=== PATIENT | male | born 1950 | race African-American/Black ===

== ENCOUNTER 2017-06-19 13:29 | Observation (INO) ==
[2017-06-19] MEDS ORDERED: Ipratropium/Albuterol Neb 3 ML IH ONE (13:33)
--- NOTE | 2017-06-19 13:56 | Emergency Department Note ---
Disposition Clinical Impression: Chest pain, rule out acute myocardial infarction, ACS (acute coronary syndrome) , Acute exacerbation of chronic obstructive airways disease Chest pain Qualifiers: Chest pain type: unspecified Qualified Code(s): R07.9 - Chest pain, unspecified Disposition: Admitted As Inpatient Condition: Fair Referrals: NO,PCP [Primary Care Provider] - Time of Disposition: 15:52 Chest Pain HPI - General Chief Complaint: ED Chest Pain Stated Complaint: Chest Pain Time Seen by Provider: 06/19/17 13:33 Source: patient, EMS Mode of arrival: EMS Limitations: no limitations Vital Signs Reviewed: Yes Nursing Notes Reviewed: Yes - History of Present Illness HPI Narrative: Patient is a 66-year-old male who presents to emergency department via EMS for chest pain. He states that he was sitting on the porch talking to a friend and suddenly started having chest pain located over the center to right side of his chest. He states that there is no radiation of pain. Patient states that the chest pain has progressively gotten worse and rates pain as a 10 out of 10. Patient states that the character the pain is sharp and constant. Nothing seems to make this pain any better or worse. He states that he has not tried taking anything for this chest pain. Severity scale (1-10): 10 - Related Data Home Medications Medication Instructions Recorded Confirmed Albuterol Sulfate [Ventolin Hfa] 2 puff IH Q4H PRN 02/06/17 06/19/17 Allergies Allergy/AdvReac Type Severity Reaction Status Date / Time aspirin Allergy Anaphylaxis Verified 09/03/16 23:34 Penicillins Allergy Anaphylaxis Verified 09/03/16 23:34 All systems ED: reviewed and negative except as stated. Constitutional: Denies: fever, chills Cardiovascular: Reports: chest pain Respiratory: Reports: dyspnea (Mild) Gastrointestinal: Reports: nausea, vomiting Chest Pain PMH - Past Medical History Medical history: Reports: COPD, other Psychiatric history: Reports: no psych history - Social History Smoking Status: Current every day smoker Alcohol use: Reports: none Drug use: Reports: none Physical Exam - General Limitations: no limitations General appearance: alert, in distress (Moderate distress) - Head Head exam: atraumatic, normocephalic - Neck Neck exam: Present: normal inspection, full ROM, trachea midline - Respiratory Respiratory exam: Present: wheezes, other (Decreased air movement) - Cardiovascular Cardiovascular exam: Present: regular rate, normal rhythm, normal heart sounds, +S1, +S2 - Abdominal Exam Abdominal exam: Present: soft, tenderness, normal bowel sounds, other (Actively vomiting) Abdominal tenderness: Present: epigastrium, mild - Neurological Exam Neurological exam: Present: alert, oriented X3, CN II-XII intact - Psychiatric Psychiatric exam: Present: normal affect, normal mood - Skin Skin exam: Present: warm, dry, intact Course - Reevaluation(s) Reevaluation #1: Patient states that he still having chest pain and rating it as a 10 out of 10. States that it still hurts when he breathes and coughs. Time: 14:18 Reevaluation #2: I spoke the patient and the family and explained the laboratory tests and imaging. I have also explained to them that the patient's symptoms are very concerning in that he is at increased risk for potential cardiac event so we would like to admit him to the hospital for observation and rule out of ACS. The patient and family are in agreement with this. Time: 15:44 Reevaluation #3: I spoke with I spoke with the nurse practitioner Cordelia Torres and she has accepted the patient to their service. Time: 17:27 Vital Signs Temperature 98.7 F 06/19/17 13:32 Pulse Rate 73 06/19/17 13:32 Respiratory Rate 18 06/19/17 13:32 Blood Pressure 197/102 06/19/17 13:32 O2 Sat by Pulse Oximetry 98 06/19/17 13:32 Temperature 98.7 F 06/19/17 13:32 Pulse Rate 76 06/19/17 16:40 Respiratory Rate 16 06/19/17 16:40 Blood Pressure 163/62 06/19/17 16:40 O2 Sat by Pulse Oximetry 95 06/19/17 16:40 Oxygen Delivery Oxygen Delivery Nasal Cannula Chest Pain - MDM Narrative Medical decision making narrative: The patient is having chest pain we have ordered laboratory testing and chest x- ray. The labs came back within normal limits other than the potassium which was slightly elevated likely due to the blood being hemolyzed and the chest x- ray showed no acute process. Due to the patient's symptoms and that they have persisted as well as the patient's heart for 5 we will admit the patient in the hospital. I spoke with the patient and the family about the laboratory results and imaging results and that we will admit him to the hospital. The patient and family were in agreement with this and I will contact the hospitalist and admit the :patient to the hospital. I spoke with the hospitalist nurse practitioner Cordelia Torres and she has accepted the patient to their service. - Lab Data Lab results reviewed: Yes I reviewed the patient's lab results. Result diagrams: 06/19/17 13:48 06/19/17 14:55 Lab Results 06/19/17 06/19/17 06/19/17 Range/Units 13:48 13:50 14:55 WBC 8.6 (4.3-11.1) K/mcL RBC 5.31 (4.19-5.50) M/mcL Hgb 16.2 (12.9-16.9) g/dL Hct 47.2 (37.5-50.1) % MCV 88.9 (83.0-100.0) fL MCH 30.5 (28.0-33.3) pg MCHC 34.3 (31.6-35.5) g/dL RDW 13.9 (11.5-14.5) % Plt Count 245 (140-400) K/mcL MPV 10.6 (9.4-12.4) fL Immature Gran % 0.2 (0-4) % Seg Neutrophils % 71.8 % Lymphocytes % 21.8 % Monocytes % 5.8 % Eosinophils % 0.3 % Basophils % 0.1 % Neutrophils # 6.2 (1.6-8.9) K/mcL Lymphocytes # 1.9 (0.6-4.6) K/mcL Monocytes # 0.5 (0.0-1.3) K/mcL Eosinophils # 0.0 (0.0-0.6) K/mcL Basophils # 0.0 (0.0-0.2) K/mcL Sodium 137 (136-145) mEq/L Potassium 4.7 H (3.5-4.5) mEq/L Chloride 103 (98-109) mEq/L Carbon Dioxide 22 (19-29) mEq/L BUN 9 (8-26) mg/dL Creatinine 0.92 (0.72-1.25) mg/dL Est GFR ( Amer) > 60 (> 60) Est GFR (Non-Af Amer) > 60 (> 60) BUN/Creatinine Ratio 10 (6-26) Glucose 85 (70-99) mg/dL Calculated Osmolality 282 (280-300) Calcium 9.4 (8.6-10.8) mg/dL Troponin I (0-0.03) ng/mL Lipase 10 (8-78) Units/L Specimen Rejected Hemolyzed 06/19/17 Range/Units 14:55 WBC (4.3-11.1) K/mcL RBC (4.19-5.50) M/mcL Hgb (12.9-16.9) g/dL Hct (37.5-50.1) % MCV (83.0-100.0) fL MCH (28.0-33.3) pg MCHC (31.6-35.5) g/dL RDW (11.5-14.5) % Plt Count (140-400) K/mcL MPV (9.4-12.4) fL Immature Gran % (0-4) % Seg Neutrophils % % Lymphocytes % % Monocytes % % Eosinophils % % Basophils % % Neutrophils # (1.6-8.9) K/mcL Lymphocytes # (0.6-4.6) K/mcL Monocytes # (0.0-1.3) K/mcL Eosinophils # (0.0-0.6) K/mcL Basophils # (0.0-0.2) K/mcL Sodium (136-145) mEq/L Potassium (3.5-4.5) mEq/L Chloride (98-109) mEq/L Carbon Dioxide (19-29) mEq/L BUN (8-26) mg/dL Creatinine (0.72-1.25) mg/dL Est GFR ( Amer) (> 60) Est GFR (Non-Af Amer) (> 60) BUN/Creatinine Ratio (6-26) Glucose (70-99) mg/dL Calculated Osmolality (280-300) Calcium (8.6-10.8) mg/dL Troponin I 0.00 (0-0.03) ng/mL Lipase (8-78) Units/L Specimen Rejected - Radiology Data Radiology results reviewed: Yes I reviewed the patient's radiology results. Chest X-Ray 06/19/17 13:35 IMPRESSION: No acute process. D/ / Chauncey Mendoza MD / Chauncey Mendoza MD Interpreting Provider: Chauncey Mendoza MD - EKG Data EKG attestation: Yes I reviewed and interpreted this EKG. EKG results narrative: EKG shows sinus rhythm at a rate of 78, MD interval. 201, QRS duration 85 and QTC 417, no ischemic changes noted on this ECG. EKG was compared to previous on 09/19/16 no acute changes noted between the 2 EKGs
[2017-06-19 13:57] LABS: Basophils % 0.1 %; Eosinophils % 0.3 %; Hematocrit 47.2 % (37.5-50.1); Hemoglobin 16.2 g/dL (12.9-16.9); Immature Granulocytes % 0.2 % (0-4); Lymphocytes # 1.9 K/mcL (0.6-4.6); Lymphocytes % 21.8 %; Mean Corpuscular HGB Conc 34.3 g/dL (31.6-35.5); Mean Corpuscular Hemoglobin 30.5 pg (28.0-33.3); Mean Corpuscular Volume 88.9 fL (83.0-100.0); Mean Platelet Volume 10.6 fL (9.4-12.4); Monocytes # 0.5 K/mcL (0.0-1.3); Monocytes % 5.8 %; Neutrophils # 6.2 K/mcL (1.6-8.9); Platelet Count 245 K/mcL (140-400); Red Blood Count 5.31 M/mcL (4.19-5.50); Red Cell Distribution Width 13.9 % (11.5-14.5); Segmented Neutrophils % 71.8 %
--- NOTE | 2017-06-19 14:06 | Emergency Department Note ---
START Narrative - START START: I examined this patient and my medical decision-making was reviewed with the ETHY[employer]EN[employer] CRACKING SUPERVISOR/PA/Advanced Practice Nurse/Resident Physician. I agree with the documented findings, disposition and treatment plan as described except to the extent set forth below. ED attending note: Patient seen with emergency medicine resident Dr Reina. We independently evaluated the patient. We independently had [id number] contact with the patient. Please see a copy of his note for details of the history and physical, evaluation, management and disposition of this emergency Department patient. Briefly 66-year-old -[place] male by EMS presents with shortness of breath wheezing and chest pain. Patient has a history of diabetes smoking hypertension elevated cholesterol and COPD. Bilateral expiratory wheezing Accessory muscle use he had about 1 sentence dyspnea. With poor airway movement. Said he was sitting on his porch and was sitting at rest no chest pain his left side normal aside of his chest but no radiation to the arm or chest. No recent stress test does not recall if he had a cardiac catheterization. EKG interpreted without cardiology showing sinus rhythm with no acute ischemic changes. Using the HEART score, patient scored 5 which is moderate risk admission is anticipated. Patient got triple DuoNeb treatment will be getting a chest x-ray and screening labs. Admission anticipated disposition pending labs pending
[2017-06-19] MEDS ORDERED: *HR* FentaNYL (PF) 100 MCG/2 ML VIAL IVP ONE (14:25)
[2017-06-19 15:18] LABS: BUN/Creatinine Ratio 10 (6-26); Blood Urea Nitrogen 9 mg/dL (8-26); Calcium 9.4 mg/dL (8.6-10.8); Carbon Dioxide 22 mEq/L (19-29); Chloride 103 mEq/L (98-109); Glucose 85 mg/dL (70-99); Lipase 10 Units/L (8-78); Osmolality,Calculated 282 (280-300); Sodium 137 mEq/L (136-145); eGFR For African Americans > 60 (> 60); eGFR For Non-African Americans > 60 (> 60)
[2017-06-19 15:21] LABS: Potassium 4.7 mEq/L (3.5-4.5)
[2017-06-19] MEDS ORDERED: Nitroglycerin 0.4 MG TAB.SUBL SL PRN (15:53)
[2017-06-19] MEDS ORDERED: *HR* Morphine 2 MG/ML SYRINGE IVP PRN (19:45)
[2017-06-19] MEDS ORDERED: Acetaminophen 325 MG TABLET PO PRN (19:45)
[2017-06-19] MEDS ORDERED: Ondansetron 4 MG/2 ML VIAL IVP PRN (19:45)
[2017-06-19] MEDS ORDERED: Naloxone 0.4 MG/ML INJ IVP PRN (19:45)
[2017-06-19] MEDS: Ipratropium/Albuterol Neb 3 ML IH SCH ×2 (20:10→23:05)
--- NOTE | 2017-06-19 20:11 | Internal Med History&Physical ---
Date of Encounter: 06/19/17 Time of Encounter: 20:00 Assessment and Plan (1) Chest pain, rule out acute myocardial infarction Current visit: Yes Status: Acute Atypical chest pain - rule out ACS, risk factors include smoking and strong family history of coronary artery disease Continue Aspirin, Statin and metoprolol IV Morphine when necessary and Nitroglycerin sublingual when necessary EKG - normal sinus rhythm with no acute ST-T changes Chest x-ray - no acute process Troponin - normal, cyclical component BN peptide - 42 Echocardiogram and stress test pending Cardiac telemetry, labs in a.m. (2) COPD (chronic obstructive pulmonary disease) Current visit: Yes Status: Chronic COPD with mild exacerbation - continue DuoNeb breathing treatment Qualifiers: COPD type: unspecified COPD Qualified Code(s): J44.9 - Chronic obstructive pulmonary disease, unspecified (3) Acute bronchitis Current visit: Yes Status: Acute Acute on chronic bronchitis - causing cough and productive sputum Continue DuoNeb breathing treatment, Mucinex, no need for antibiotics at this time Qualifiers: Bronchitis organism: unspecified organism Qualified Code(s): J20.9 - Acute bronchitis, unspecified (4) Essential hypertension Current visit: Yes Status: Chronic Essential hypertension, uncontrolled - patient has not been on meds for some time Started on metoprolol, monitor (5) Chronic back pain Current visit: Yes Status: Chronic Chronic back pain - status post pain pump placement Qualifiers: Back pain location: low back pain Back pain laterality: bilateral Sciatica presence: without sciatica Qualified Code(s): M54.5 - Low back pain; G89.29 - Other chronic pain (6) Tobacco abuse Current visit: Yes Status: Chronic Smokes about a pack and a half of cigarettes daily - has smoked for almost 40 years Counseled about cessation, nicotine patch (7) DVT prophylaxis Current visit: Yes Status: Acute Continue heparin subcutaneous Internal Medicine - H&P: HPI Chief complaint: Chest pain Admitted From: Emergency Dept Plans for Post Hospital Care: Home History of present illness: Mr. Douglas is a 66 year old male with past medical history of COPD, hypertension and chronic back pain. He presents to ED with complaints of chest pain. On examination patient is awake and alert. Not in any distress. Able to provide history. No family members at bedside. Patient states he developed chest pain at around 11:30 AM this morning while he was at his friend's house. Patient states he developed right-sided chest pain which was sharp and almost constant. Pain did not radiate. Initial pain was almost 10 out of 10. He states pain is now better after being given medication in the ED. He also complained of nausea and 1 episode of vomiting. Also had associated shortness of breath which is now improved. No aggravating factors. Patient states he has had some chronic cough for the past few days with some productive sputum. He does have a history of COPD and continues to smoke about a pack and a half of cigarettes a day. Patient denies headache or dizziness or fever or abdominal pain or diarrhea. No other associated symptoms. Initial evaluation in the ED is negative. Troponin is normal and EKG shows normal sinus rhythm. Patient will be on aspirin and statin. Patient will also be on DuoNeb breathing treatment and empiric antibiotics for probable acute bronchitis. He is being admitted for chest pain to rule out ACS. He does have a strong family history of coronary artery disease. Echocardiogram and stress test are pending. Patient has been explained about his condition and plan of care. Understood and agreed. No unanswered questions. CODE STATUS full code. Past Med Surg Social Fam HX - Past Medical History Medical history: COPD, hypertension, other (Chronic back pain) Psychiatric history: no psych history - Past Surgical History Surgical History: prostatectomy, other (Pain pump placement for chronic back pain) - Social History Smoking Status: Current every day smoker Smokeless Tobacco Status: No Alcohol use: none Drug use: none - Family History Mother Living Status: Age at : 84 Cause of : old age Hx Family Cardiac Disorders: Yes Father Living Status: Age at : 84 Cause of : heart disease Hx Family Cardiac Disorders: Yes Internal Medicine - H&P: Meds Albuterol Sulfate [Ventolin Hfa] 2 puff IH Q4H PRN 02/06/17 [History] Allergies Penicillins Allergy (Verified 09/03/16 23:34) Anaphylaxis aspirin Adverse Reaction (Verified 06/19/17 21:25) Nausea All Systems PM: A 10-system review of systems was performed and is negative for pertinent findings except as documented above in the HPI. - Constitutional Constitutional: no fatigue, no fever(s), no weakness - EENT Eyes: no blurry vision - Cardiovascular Cardiovascular ROS IM: chest pain, dyspnea, no dyspnea on exertion, no edema, no lightheadedness, no orthopnea, no syncope - Respiratory Respiratory: cough, dyspnea, chest congestion, no dyspnea on exertion, no wheezing - Gastrointestinal Gastrointestinal: no abdominal pain, no belching, no bloating, no constipation, no cramping, no diarrhea, no melena, no nausea, no vomiting - Genitourinary Genitourinary ROS male: no dysuria - Musculoskeletal Musculoskeletal ROS IM: back pain, no arthralgias - Neurological Neurological ROS: no abnormal gait, no abnormal speech, no dizziness, no focal weakness, no numbness, no tingling, no weakness - Constitutional Vitals: Temp Pulse Resp BP Pulse Ox 99.4 F 92 15 164/94 97 06/19/17 20:01 06/19/17 20:01 06/19/17 20:01 06/19/17 20:01 06/19/17 20:01 General appearance: Present: A&O X 3, pleasant, no acute distress, answers questions appropriately - Head Head exam: Present: atraumatic - Eye Eye exam: Present: EOMI - ENT ENT exam: Present: mucous membranes moist - Neck Neck exam general surgery: Present: supple - Respiratory Respiratory exam: Present: rhonchi (Mild bilateral). Absent: accessory muscle use, chest wall tenderness, rales, wheezes, tachypnea - Cardiovascular Cardiovascular exam: Present: RRR, +S1, +S2 - GI/Abdominal GI/Abdominal exam: Present: soft, no peritoneal signs. Absent: distended, firm , guarding, rigid, tenderness - Extremities Exam Extremities exam: Present: radial pulses palpable and symetrical. Absent: cyanotic, pedal edema, tenderness - Neurological Exam Neurological exam: Present: alert, oriented X3, no focal deficits. Absent: facial droop, speech deficit Internal Med - H&P Results - Labs CBC & Chem 7: 06/19/17 13:48 06/19/17 14:55
[2017-06-19 20:44] LABS: INR 1.1; Prothrombin Time 11.4 Seconds (9.4-12.1)
[2017-06-19] MEDS: *HR* Heparin 5,000 UNIT/ML VIAL SQ SCH (22:15)
[2017-06-19] MEDS: Aspirin Enteric Coated 81 MG Tablet PO SCH (22:16)
[2017-06-19] MEDS: Nicotine 21 MG PATCH.TD24 TD SCH (23:26)
[2017-06-20] MEDS: Ipratropium/Albuterol Neb 3 ML IH SCH ×6 (03:52→23:38)
[2017-06-20 03:56] LABS: Basophils % 0.1 %; Hematocrit 39.4 % (37.5-50.1); Hemoglobin 13.1 g/dL (12.9-16.9); Immature Granulocytes % 0.1 % (0-4); Lymphocytes # 1.7 K/mcL (0.6-4.6); Lymphocytes % 17.5 %; Mean Corpuscular HGB Conc 33.2 g/dL (31.6-35.5); Mean Corpuscular Hemoglobin 29.3 pg (28.0-33.3); Mean Corpuscular Volume 88.1 fL (83.0-100.0); Mean Platelet Volume 10.8 fL (9.4-12.4); Monocytes # 1.4 K/mcL (0.0-1.3); Monocytes % 14.2 %; Neutrophils # 6.5 K/mcL (1.6-8.9); Platelet Count 218 K/mcL (140-400); Red Blood Count 4.47 M/mcL (4.19-5.50); Red Cell Distribution Width 13.6 % (11.5-14.5); Segmented Neutrophils % 68.1 %
[2017-06-20 04:10] LABS: BUN/Creatinine Ratio 14 (6-26); Blood Urea Nitrogen 15 mg/dL (8-26); Carbon Dioxide 28 mEq/L (19-29); Chloride 100 mEq/L (98-109); Chol/HDL Ratio 2.1 (0-4.9); Glucose 116 mg/dL (70-99); Osmolality,Calculated 284 (280-300); Sodium 136 mEq/L (136-145); eGFR For African Americans > 60 (> 60); eGFR For Non-African Americans > 60 (> 60)
[2017-06-20 05:11] LABS: Thyroid Stimulating Hormone 0.418 mcIU/mL (0.350-4.840)
[2017-06-20] MEDS ORDERED: Regadenoson 0.4 MG/5 ML SYRINGE IVP ONE (05:57)
[2017-06-20] MEDS: *HR* Heparin 5,000 UNIT/ML VIAL SQ SCH ×3 (05:59→21:51)
[2017-06-20] MEDS: Famotidine 20 MG/2 ML VIAL IVP SCH ×2 (06:27→16:05)
--- NOTE | 2017-06-20 09:50 | Nuclear Medicine Stress Report ---
Regadenoson Nuclear Stress Name: Jordon Douglas Date of Study: 06/20/2017 Date: 1950 Ht: 69.0 in Medical Record#: [id number] Age: 66 Wt: 150.0 lb Gender: Male Order #: [id number] Location: [facility] Room: [facility] Supervising Provider: Nikko Matos CNP Reading Physician: Haja Rowe DO, FAC, [facility] Ordering Physician: Ellen Mehta CNP Primary Care Physician: None Stress Technologist: Rabia Israel LOAD TEST MECHANIC, CCT Stone Rougher: Corine Mclean Indications: Chest Pain Impression: Pharmacologic stress ECG is negative for ischemia at level of heart rate achieved. Gated EF = 64%. Small sized, mild intensity, fixed apex and apical inferior defect. Wall motion is normal. Findings are c/w artifact. Perfusion imaging was negative for ischemia or infarct. History: Hypertension Hypercholesteremia History of Smoking Stress Test Summary: Stress Test Type: Pharmacologic Regadenoson 0.4mg/5ml given IV Baseline Information: Initial Heart Rate: 80 Blood Pressure: 144/82 Stress Information: Test Terminated Due to (primary): As per protocol Maximum Blood Pressure: 148/84 Maximum Heart Rate: 110 Percent Maximum Heart Rate Achieved: 72 Double Product: 70312 METS Reached: 1 Symptoms: Shortness of breath, No chest symptoms Nuclear Summary: SPECT myocardial perfusion imaging using Tc99m Sestamibi given intravenously was performed at rest and following cardiac stress testing. The resting images were obtained following initial dose of 11.2 mCi. Following stress an additional dose of 34.6 mCi was given at peak exercise or 30 seconds post regadenoson infusion. Medication Given: Time Medication Dose Units Route Findings: Stress Note * Resting ECG demonstrated normal sinus rhythm. * No baseline arrhythmias were noted. * Pharmacologic stress ECG is negative for ischemia at level of heart rate achieved. * No arrhythmias were noted during stress. * Patient had no chest pain during stress. Hemodynamic responses * Normal hemodynamic responses to pharmacologic stress. Study Quality * Study quality is average. Gated EF % * Gated EF = 64%. Left Ventricle * The left ventricle is not dilated. LVEDV = 108 mL. * Normal wall motion. Apical Perfusion Rest * The apex and apical inferior segments show a mild reduction in perfusion. Apical Perfusion Stress * The apex and apical inferior segments show a mild reduction in perfusion. TID * No evidence of transient ischemic dilatation. TID ratio = 1.16. Lung Uptake * There is no evidence of increase lung uptake. Updated by Haja Rowe DO, DIVINE, CLOVER, DIANA on 06/20/2017 9:43:10 AM
[2017-06-20] MEDS: Nicotine 21 MG PATCH.TD24 TD SCH (10:40)
[2017-06-20] MEDS: Aspirin Enteric Coated 81 MG Tablet PO SCH (10:40)
--- NOTE | 2017-06-20 14:59 | Internal Med Progress Note ---
Date of Encounter: 06/20/17 Time of Encounter: 14:45 - Assessment and plan (1) Chest pain Current Visit: Yes Status: Acute Assessment and plan: Patient reports presenting to the emergency department for right-sided chest pain which is sharp and constant without radiation. He said it was 10/10. He is pain-free at this time. He also had associated shortness of breath that was worse than his normal baseline shortness of breath. He has had a cough and shortness of breath for about a month. The pain is not reproducible. He is pain-free at this time. Troponins were negative 3. Chest x-ray was negative for any acute process. Echocardiogram showed LVEF 55% with mild concentric LV hypertrophy and atypical septal motion of unclear etiology and mild diastolic dysfunction. Stress test showed gated EF of 64%. There is a small sized, mild intensity, fixed apex and apical anterior defect wall motion was normal. The findings were consistent with artifact. Perfusion imaging was negative for ischemia or infarct. Continue telemetry 2 new treatment for bronchitis and COPD Monitor labs Treat chest pain with nitroglycerin as needed if it returns. Chest X-Ray 06/19/17 13:35 IMPRESSION: No acute process. D/ / Chauncey Mendoza MD / Chauncey Mendoza MD Interpreting Provider: Chauncey Mendoza MD Qualifiers: Chest pain type: unspecified Qualified Code(s): R07.9 - Chest pain, unspecified (2) Acute bronchitis Current Visit: Yes Status: Acute Assessment and plan: Patient with history of COPD. Patient reports productive cough with thin yellow purulent sputum for several weeks. Patient is a smoker. Wheezing and rhonchi are heard in all posterior gerardo. Patient coughs with any deep inspiration. Continue duo nebs scheduled Albuterol breathing treatments when necessary Solu-Medrol 40 mg IV bid Levaquin 500mg IV daily Oxygen titrate to maintain sats >92%. Qualifiers: Bronchitis organism: unspecified organism Qualified Code(s): J20.9 - Acute bronchitis, unspecified (3) Tobacco abuse Current Visit: Yes Status: Chronic Assessment and plan: Chronic. Nicotine patch. (4) Essential hypertension Current Visit: Yes Status: Chronic Assessment and plan: Chronic. Continue home medications. Monitor vital signs. (5) DVT prophylaxis Current Visit: Yes Status: Acute Assessment and plan: Heparin subcutaneous. (6) Respiratory failure with hypoxia Current Visit: Yes Status: Acute Assessment and plan: Patient is requiring supplemental oxygen to maintain sats greater than 92%. He is currently using 3 L of oxygen. He states that he does not have home oxygen. We can reevaluate prior to discharge for need for home oxygen. Qualifiers: Chronicity: acute Qualified Code(s): J96.01 - Acute respiratory failure with hypoxia - Time Spent With Patient less than 15 minutes - Subjective Interval history: Patient was seen and assessed at 2:45 PM. Is speaking with the elementary school social worker regarding resources. He reports a two-month history of productive cough, shortness of breath, wheezing. Is currently living at home with no water and electricity. He reports that he is having increasing difficulty with ADLs. He does smoke. - Constitutional Vitals: Temp Pulse Resp BP Pulse Ox 98.0 F 79 16 162/100 100 06/20/17 11:28 06/20/17 11:28 06/20/17 11:28 06/20/17 11:44 06/20/17 11:28 General appearance: Present: A&O X 3, pleasant, no acute distress, answers questions appropriately - Head Head exam: Present: normal inspection - Eye Eye exam: Present: normal appearance, conjuntiva pink - ENT ENT exam: Present: mucous membranes moist, normal exam, normal external ear exam - Neck Neck exam general surgery: Present: normal inspection. Absent: lymphadenopathy , tenderness - Respiratory Respiratory exam: Present: rhonchi, wheezes. Absent: chest wall tenderness, decreased breath sounds, prolonged expiratory phase, rales, respiratory distress - Cardiovascular Cardiovascular exam: Present: RRR, +S1, +S2. Absent: diastolic murmur, systolic murmur - GI/Abdominal GI/Abdominal exam: Present: normal bowel sounds, soft. Absent: distended, hernia, hepatomegaly, tenderness - Extremities Exam Extremities exam: Present: normal capillary refill, warm, radial pulses palpable and symetrical. Absent: mottling, pedal edema, tenderness - Neurological Exam Neurological exam: Present: alert, oriented X3, no focal deficits. Absent: facial droop, speech deficit Internal Medicine: Result - Labs CBC & Chem 7: 06/20/17 03:08 06/20/17 03:08 Labs: Short CBC 06/20/17 Range/Units 03:08 WBC 9.5 (4.3-11.1) K/mcL Hgb 13.1 D (12.9-16.9) g/dL Hct 39.4 (37.5-50.1) % Plt Count 218 (140-400) K/mcL Neutrophils # 6.5 (1.6-8.9) K/mcL BMP 06/20/17 03:08 Sodium 136 Potassium 4.0 Chloride 100 Carbon Dioxide 28 BUN 15 Creatinine 1.05 Glucose 116 H Calcium 9.0 Cardiac Enzymes 06/19/17 06/20/17 Range/Units 20:23 03:08 Troponin I 0.00 0.00 (0-0.03) ng/mL - ABG Interpretation ABG results: PT/INR, D-dimer PT 11.4 Seconds (9.4-12.1) 06/19/17 20:23 Consult Discharge Plan - Plan
[2017-06-20 15:30] LABS: Bilirubin,Urine Negative (Negative); Blood,Urine Small (Negative); Clarity,Urine Clear (Clear); Color,Urine Dark Yellow (Yellow); Glucose,Urine (UA) Normal (Normal); Ketones,Urine Negative (Negative); Leukocyte Esterase,Urine Negative (Negative); Nitrite,Urine Negative (Negative); Protein,Urine Negative (Neg-Trace); Urobilinogen,Urine Normal (Normal)
[2017-06-20 15:33] LABS: Bacteria,Urine None Seen per hpf (None-Few); Hyaline Casts,Urine None Seen per lpf (None-Few); RBC,Urine 0-3 per hpf (0-3); Squamous Epithelial Cell,Urine Few per lpf (None-Few); WBC,Urine 0-3 per hpf (0-3)
[2017-06-20] MEDS ORDERED: Albuterol 2.5 MG/3 ML NEBULIZER IH PRN (15:35)
--- NOTE | 2017-06-20 15:52 | Electrocardiograph Report ---
[address] [address] Test Date: 2017-06-19 Pat Name: Jordon Douglas Department: 105 Room: 3B54 Gender: M Property Maintenance Supervisor: TANISHA : 1950 Requested By: Roel Plaza Order Number: [id number] Reading MD: Jony Oliva MD Measurements Intervals [place] Rate: 78 P: 64 IN: 201 QRS: -14 QRSD: 85 T: 48 QT: 384 QTc: 417 Interpretive Statements SINUS RHYTHM Electronically Signed On 06-20-2017 15:50:27 EDT by Jony Oliva MD
[2017-06-20] MEDS ORDERED: Levofloxacin 500 MG/100 ML 500 MG/100 ML BAG IVPB SCH (16:00)
[2017-06-20] MEDS: MethylPREDNISolone 40 MG/ML VIAL IVP SCH (16:05)
[2017-06-21] MEDS: Ipratropium/Albuterol Neb 3 ML IH SCH ×2 (04:19→07:52)
[2017-06-21] MEDS: *HR* Heparin 5,000 UNIT/ML VIAL SQ SCH (05:34)
[2017-06-21] MEDS: MethylPREDNISolone 40 MG/ML VIAL IVP SCH (05:34)
[2017-06-21] MEDS: Famotidine 20 MG/2 ML VIAL IVP SCH (05:34)
[2017-06-21 07:13] VITALS: BP 148/87
[2017-06-21 07:35] LABS: Basophils % 0.1 %; Hematocrit 41.3 % (37.5-50.1); Hemoglobin 13.8 g/dL (12.9-16.9); Immature Granulocytes % 0.7 % (0-4); Lymphocytes # 1.1 K/mcL (0.6-4.6); Lymphocytes % 6.6 %; Mean Corpuscular HGB Conc 33.4 g/dL (31.6-35.5); Mean Corpuscular Hemoglobin 29.4 pg (28.0-33.3); Mean Corpuscular Volume 87.9 fL (83.0-100.0); Mean Platelet Volume 12.3 fL (9.4-12.4); Monocytes # 1.1 K/mcL (0.0-1.3); Monocytes % 7.2 %; Neutrophils # 13.6 K/mcL (1.6-8.9); Platelet Count 201 K/mcL (140-400); Red Cell Distribution Width 13.2 % (11.5-14.5); Segmented Neutrophils % 85.4 %
[2017-06-21 07:44] LABS: BUN/Creatinine Ratio 13 (6-26); Blood Urea Nitrogen 12 mg/dL (8-26); Calcium 9.4 mg/dL (8.6-10.8); Carbon Dioxide 19 mEq/L (19-29); Chloride 102 mEq/L (98-109); Glucose 150 mg/dL (70-99); Osmolality,Calculated 277 (280-300); Sodium 132 mEq/L (136-145); eGFR For African Americans > 60 (> 60); eGFR For Non-African Americans > 60 (> 60)
[2017-06-21 07:52] LABS: Potassium 4.8 mEq/L (3.5-4.5)
--- NOTE | 2017-06-21 08:15 | Discharge Summary ---
Date of Encounter: 06/21/17 Time of Encounter: 07:45 - Discharge Diagnosis (1) Chest pain Priority: Primary Status: Resolved Comments: Patient denied chest pain on day of discharge. Stress test negative. Echocardiogram unremarkable with ejection fraction of 55%. Acute coronary syndrome ruled out. Follow up outpatient Qualifiers: Chest pain type: unspecified Qualified Code(s): R07.9 - Chest pain, unspecified (2) Unsatisfactory living conditions Priority: Primary Status: Chronic Comments: Patient does not have electricity or running water. He told me that his ex- . His electric bill last week and states that his electricity has been turned on. This was not corroborated with his ex- or his sons. Patient also stating he has the money to pay his water pill and is going to do that today. Again, low suspicion as to the veracity of this statement. hvac services professional on board. Patient is alert and oriented 3, will get social work involved for additional resources possible APS referral at social work discretion. (3) Alcohol abuse Priority: Secondary Status: Chronic Comments: Family reporting patient is a heavy, daily drinker. Patient requesting a "pint and a pack" at time of discharge. No signs of withdrawal on day of discharge. (4) Acute exacerbation of chronic obstructive airways disease Priority: Primary Status: Resolved Comments: Patient denied shortness of breath above his normal daily discharge. On albuterol only home, will initiate controller medications (5) COPD (chronic obstructive pulmonary disease) Priority: Secondary Status: Chronic (6) Acute bronchitis Priority: Primary Status: Acute Qualifiers: Bronchitis organism: unspecified organism Qualified Code(s): J20.9 - Acute bronchitis, unspecified (7) DVT prophylaxis Priority: Primary Status: Acute Comments: Subcutaneous heparin while admitted (8) Chronic back pain Priority: Secondary Status: Chronic Comments: Reportedly has a pain pump, patient denied pain above his usual time of discharge Qualifiers: Back pain location: low back pain Back pain laterality: bilateral Sciatica presence: without sciatica Qualified Code(s): M54.5 - Low back pain; G89.29 - Other chronic pain (9) Tobacco abuse Priority: Secondary Status: Chronic Comments: Patient stating he has smoked 1.5 packs per day since he was 10 years old. He is not interested in stopping smoking. (10) Essential hypertension Priority: Secondary Status: Chronic Comments: Borderline hypertensive/hypertensive during this visit. He is not on antihypertensives at home, will initiate metoprolol and will instruct him to check his blood pressure daily at home and follow up with his primary care provider (11) Respiratory failure with hypoxia Priority: Primary Status: Resolved Comments: Tolerating room air on day of discharge Qualifiers: Chronicity: acute Qualified Code(s): J96.01 - Acute respiratory failure with hypoxia - Discharge Medications Prescriptions: Albuterol Sulfate [Ventolin Hfa] 2 puff IH Q4H PRN #1 PRN Reason: Shortness Of Breath Aspirin Enteric Coated [Aspirin EC] 81 mg PO DAILY #30 Budesonide/Formoterol 160/4.5 [Symbicort 160/4.5] 1 puff IH BIDR #1 hfa.aer.ad GuaiFENesin ER [Mucinex] 600 mg PO BID #14 levoFLOXacin [Levofloxacin] 750 mg PO DAILY #5 tablet Metoprolol [Lopressor] 25 mg PO BID #60 tab predniSONE [PredniSONE] 10 mg PO DAILY #80 tablet Home Medications: Albuterol Sulfate [Ventolin Hfa] 2 puff IH Q4H PRN #1 06/21/17 [Rx] Aspirin Enteric Coated [Aspirin EC] 81 mg PO DAILY #30 06/21/17 [Rx] Budesonide/Formoterol 160/4.5 [Symbicort 160/4.5] 1 puff IH BIDR #1 hfa.aer.ad 06/21/17 [Rx] GuaiFENesin ER [Mucinex] 600 mg PO BID #14 06/21/17 [Rx] Metoprolol [Lopressor] 25 mg PO BID #60 tab 06/21/17 [Rx] levoFLOXacin [Levofloxacin] 750 mg PO DAILY #5 tablet 06/21/17 [Rx] predniSONE [PredniSONE] 10 mg PO DAILY #80 tablet 06/21/17 [Rx] Allergies/Adverse Reactions: Allergies aspirin Adverse Reaction (Verified 06/20/17 11:09) Nausea Penicillins Adverse Reaction (Verified 06/20/17 11:09) Nausea Procedures/tests Complete & Pending: Procedures Performed prior 72 hours Category Date Time Status NM adelina perf SPECT multi [NM] Routine Exams 06/19/17 19:50 Taken ECG 12 lead ECG [ECG] AM 0600 Y 06/20/17 06:00 Ordered EV echocardiogram Routine Y 06/20/17 19:49 Completed SP pharm nuclear stress Routine Y 06/20/17 07:15 Completed Date of admission: 06/19/17 18:10 Primary care physician: PCP NO Consults: 06/20/17 10:34 Consult to Band Head Saw Operator [CONS] Routine Reason for SW Consult: discharge planning Discharging clinician: Kavita Romero Anticipated date of discharge: 06/21/17 (getting him a ride; likely APS report) - Patient Status Disposition: Home, Self-Care Condition: Fair Functional capacity at discharge: independent ambulation Overall status at discharge: patient is back to baseline - Discharge Instructions Follow Up With: Shweta Wahl CNP [Partnered Physician] - Forms: ED Satisfaction Letter Additional Instructions: followup with new PCP as scheduled - Diet and Activity Activity: increase activity as tolerated Diet: low fat, low cholesterol, low salt diet Hospital course: Mr. Douglas is a 66 year old male with past medical history of COPD, hypertension , chronic back pain with pain pump placement, tobacco abuse, alcohol abuse. Patient presented to the emergency department chief complaint of chest pain. Patient stating he developed chest pain on the morning of presentation while he was at a friend's house. He states his pain it was right-sided and was sharp and almost constant. It did not radiate. He also complained of nausea and 1 episode of vomiting. He also endorsed associated shortness of breath. He also endorses chronic cough for the past few days prior to presentation with productive sputum. Workup in the emergency department unremarkable other than uncontrolled hypertension. No ECG changes. Chest x-ray negative. Patient was admitted to the hospitalist service for further evaluation and management. Troponins negative 3. Echocardiogram unremarkable with ejection fraction of 55 %. Patient had a nuclear stress test that was negative. Acute coronary syndrome was ruled out. Of note, patient continues to smoke 1.5 packs per day since the age of 10 and did not want to discuss smoking cessation. He initially required supplemental oxygenation and was also treated for acute bronchitis/COPD exacerbation during this admission. He was on room air at time of discharge and denied shortness of breath above his norm. He was started on controller medications and sent home with a prednisone taper. The only home medication listed was albuterol so he was started on Symbicort, prednisone taper , given some Mucinex, and initiated on metoprolol for his uncontrolled hypertension as well as started on a baby aspirin given his risk factors. Preliminary sputum culture also revealing gram-positive cocci, sent on levofloxacin for staph coverage. Sensitivity is pending. At time of discharge , he was cleared from a cardiac and a respiratory standpoint. However, the patient's family states that he does not have running water or electricity at his home. Patient agreed but stated that his ex-. His large pill last week and stated his electricity is due to be turned on. He also stated he had money for his water bill that he stated he was going to pay on the day of discharge. These findings were not corroborated by his family or his ex-. hvac services professional was brought on board and gave the patient resources. His family was wanting the patient to be placed in a long term however there was no indication. Patient was alert and fully oriented 3. At time of discharge, patient remained oriented 3 and stated that he would refuse placement and would refuse any type of help. He was provided with a ride home and he was discharged home in stable condition. APS/AAA/passport referrals to be made at the discretion of mental health social worker. There were no family members present on day of discharge and none that were able to come to the hospital or to take the patient in. Patient stating that he was going to continue drinking and smoking upon discharge. ITS Impressions Chest X-Ray 06/19/17 13:35 IMPRESSION: No acute process. D/ / Chauncey Mendoza MD / Chauncey Mendoza MD Interpreting Provider: Chauncey Mendoza MD Echocardiogram impressions: LVEF 55%. Normal LV chamber size and function. Mild concentric left ventricular hypertrophy. Atypical septal motion of unclear etiology. Mild left ventricular diastolic dysfunction. Normal respiratory ventricular structure and function. No significant valvular dysfunction. Unable to accurately estimate RVSP due to lack of adequate TR jet. Regadenosen nuclear stress impression: Pharmacologic stress ECG is negative for ischemia at level of heart rate achieved. Gated ejection fraction equals 64%. Small size, mild intensity, fixed apex and apical inferior defect. Wall motion is normal. Findings are consistent with artifact. Perfusion imaging was negative for ischemia or infarct. - Time Spent with Patient Total time spent providing and/or coordinating discharge services: - Constitutional Vitals: Temp Pulse Resp BP Pulse Ox 98.0 F 81 16 148/87 94 06/21/17 07:12 06/21/17 07:12 06/21/17 07:12 06/21/17 07:12 06/21/17 07:12 General appearance: Present: A&O X 3, pleasant, no acute distress, answers questions appropriately - Head Head exam: Present: atraumatic, normocephalic - Eye Eye exam: Present: PERRL, conjuntiva pink, sclera anicteric Pupils: Present: PERRL - Neck Neck exam general surgery: Present: supple, trachea midline. Absent: lymphadenopathy - Respiratory Respiratory exam: Present: wheezes. Absent: accessory muscle use, rales, respiratory distress, rhonchi - Cardiovascular Cardiovascular exam: Present: RRR, +S1, +S2. Absent: diastolic murmur, gallop, rubs, systolic murmur - GI/Abdominal GI/Abdominal exam: Present: normal bowel sounds, soft, no peritoneal signs. Absent: distended, tenderness - Extremities Exam Extremities exam: Present: warm, radial pulses palpable and symetrical. Absent : calf tenderness, cyanotic, pedal edema - Neurological Exam Neurological exam: Present: alert, CN II-XII intact, normal gait, oriented X3, no focal deficits, strengths equal and symetr throughout. Absent: pronater drift, facial droop, speech deficit - Skin Skin exam: Present: dry, intact, normal color, warm
[2017-06-21] MEDS: Nicotine 21 MG PATCH.TD24 TD SCH (08:44)
[2017-06-21] MEDS: Aspirin Enteric Coated 81 MG Tablet PO SCH (08:47)
== END 2017-06-21 09:06 | disposition home or self-care (01) ==
LOC: 3BNU 13:29 → EMEROO 13:29 → SUATTDRO 18:10 → 3BNU 18:32
PROVIDERS: ADMIT Family Medicine; ATTEND Nurse Practitioner Family

== ENCOUNTER 2020-05-23 07:14 | Observation (INO) ==
[2020-05-23] MEDS ORDERED: Nitroglycerin 0.4 MG TAB.SUBL SL PRN (07:18)
[2020-05-23] MEDS ORDERED: Aspirin 325 MG TABLET PO ONE (07:28)
[2020-05-23] MEDS ORDERED: Ondansetron ODT 4 MG TAB.RAPDIS SL ONE (07:28)
[2020-05-23 08:04] LABS: Basophils % 0.3 %; Eosinophils # 0.1 K/mcL (0.0-0.6); Eosinophils % 0.9 %; Hematocrit 44.8 % (37.5-50.1); Hemoglobin 14.5 g/dL (12.9-16.9); Immature Granulocytes % 0.2 % (0-4); Lymphocytes # 1.9 K/mcL (0.6-4.6); Lymphocytes % 29.7 %; Mean Corpuscular HGB Conc 32.4 g/dL (31.6-35.5); Mean Corpuscular Hemoglobin 30.5 pg (28.0-33.3); Mean Corpuscular Volume 94.3 fL (83.0-100.0); Mean Platelet Volume 11.1 fL (9.4-12.4); Monocytes # 0.6 K/mcL (0.0-1.3); Monocytes % 9.5 %; Neutrophils # 3.8 K/mcL (1.6-8.9); Platelet Count 199 K/mcL (140-400); Red Blood Count 4.75 M/mcL (4.19-5.50); Red Cell Distribution Width 13.5 % (11.5-14.5); Segmented Neutrophils % 59.4 %; White Blood Count 6.3 K/mcL (4.3-11.1)
[2020-05-23 08:15] LABS: INR 0.9; Prothrombin Time 10.7 Seconds (9.4-12.1)
[2020-05-23] MEDS ORDERED: Isovue-370 500 ML BOTTLE IVP ONE (08:16)
[2020-05-23 08:18] LABS: Activated Partial Thrombo Time 28.7 Seconds (26.0-36.0)
[2020-05-23] MEDS ORDERED: *HR* FentaNYL (PF) 100 MCG/2 ML VIAL IVP ONE ×3 (08:23→09:09)
[2020-05-23 09:02] LABS: BUN/Creatinine Ratio 16 (6-26); Blood Urea Nitrogen 21 mg/dL (8-23); Calcium 9.5 mg/dL (8.6-10.3); Carbon Dioxide 27 mEq/L (23-29); Chloride 104 mEq/L (98-107); Glucose 109 mg/dL (70-105); Osmolality,Calculated 296 (280-300); Potassium 4.4 mEq/L (3.5-5.1); Sodium 141 mEq/L (136-145); Troponin I < 0.03 ng/mL (< 0.04); eGFR For African Americans > 60 (> 60); eGFR For Non-African Americans 54 (> 60)
[2020-05-23] MEDS ORDERED: Ipratropium/Albuterol Neb 3 ML IH ONE (09:35)
[2020-05-23] MEDS ORDERED: Acetaminophen 325 MG TABLET PO PRN (10:30)
[2020-05-23] MEDS ORDERED: *HR* HYDROcodone/Acet 5/325 mg TABLET PO PRN (10:30)
[2020-05-23] MEDS ORDERED: Ondansetron 4 MG/2 ML VIAL IVP PRN (10:30)
[2020-05-23] MEDS ORDERED: Naloxone 0.4 MG/ML INJ IVP PRN (10:30)
[2020-05-23] MEDS ORDERED: Lidocaine 5% OINT 35 APPL/35.44 GM TUBE TP PRN (11:34)
[2020-05-23] MEDS: *HR* Heparin 5,000 UNIT/ML VIAL SQ SCH (17:01)
[2020-05-24] MEDS: *HR* Heparin 5,000 UNIT/ML VIAL SQ SCH ×2 (05:25→18:06)
[2020-05-24] MEDS ORDERED: Regadenoson 0.4 MG/5 ML SYRINGE IVP ONE (06:14)
[2020-05-24 06:17] LABS: Basophils % 0.3 %; Eosinophils % 0.6 %; Hematocrit 43.7 % (37.5-50.1); Hemoglobin 14.4 g/dL (12.9-16.9); Immature Granulocytes % 0.3 % (0-4); Lymphocytes % 27.5 %; Mean Corpuscular Hemoglobin 31.2 pg (28.0-33.3); Mean Corpuscular Volume 94.6 fL (83.0-100.0); Mean Platelet Volume 11.4 fL (9.4-12.4); Monocytes # 0.8 K/mcL (0.0-1.3); Monocytes % 11.2 %; Neutrophils # 4.4 K/mcL (1.6-8.9); Platelet Count 171 K/mcL (140-400); Red Blood Count 4.62 M/mcL (4.19-5.50); Red Cell Distribution Width 13.4 % (11.5-14.5); Segmented Neutrophils % 60.1 %; White Blood Count 7.2 K/mcL (4.3-11.1)
[2020-05-24 06:35] LABS: BUN/Creatinine Ratio 14 (6-26); Blood Urea Nitrogen 15 mg/dL (8-23); Calcium 9.1 mg/dL (8.6-10.3); Carbon Dioxide 30 mEq/L (23-29); Chloride 101 mEq/L (98-107); Glucose 88 mg/dL (70-105); Osmolality,Calculated 282 (280-300); Potassium 4.3 mEq/L (3.5-5.1); Sodium 136 mEq/L (136-145); eGFR For African Americans > 60 (> 60); eGFR For Non-African Americans > 60 (> 60)
[2020-05-24 06:37] LABS: Chol/HDL Ratio 2.1 (0-4.9)
[2020-05-24 08:41] LABS: Estimated Average Glucose 120 mg/dl; Hemoglobin A1C 5.8 %
[2020-05-24] MEDS: carvediloL 6.25 MG TABLET PO SCH ×2 (13:11→18:06)
[2020-05-25] MEDS: *HR* Heparin 5,000 UNIT/ML VIAL SQ SCH (05:32)
[2020-05-25] MEDS: carvediloL 6.25 MG TABLET PO SCH (08:21)
[2020-05-25] MEDS ORDERED: lisinopriL 5 MG TABLET PO SCH (09:00)
[2020-05-25] MEDS ORDERED: Aspirin Enteric Coated 81 MG Tablet PO SCH (09:00)
[2020-05-25] MEDS ORDERED: *HR* Heparin 10,000 UNIT/10 ML VIAL ONE (10:50)
[2020-05-25] MEDS ORDERED: 0.9 % Sodium Chloride 2,000 ML ONE (10:50)
[2020-05-25] MEDS ORDERED: Nitroglycerin 1,000 MCG/10 ML VIAL IV ONE (10:50)
[2020-05-25] MEDS ORDERED: ISOVUE-370 200 ML INFUS..BTL ONE (10:50)
[2020-05-25] MEDS ORDERED: Heparin 1,000 UNITS/500 mL 500 ML ONE (10:50)
[2020-05-25] MEDS ORDERED: Tirofiban 12.5 MG/250ML 0 MG/0 ML BAG ONE (11:14)
[2020-05-25] MEDS ORDERED: *HR* Midazolam HCl 2 MG/2 ML VIAL ONE (11:14)
[2020-05-25] MEDS ORDERED: *HR* FentaNYL (PF) 100 MCG/2 ML VIAL ONE (11:14)
[2020-05-25] MEDS ORDERED: *HR* Labetalol 100 MG/20 ML MDV ONE (12:01)
[2020-05-25 17:17] VITALS: BP 138/85
== END 2020-05-25 17:30 | disposition home or self-care (01) ==
LOC: 3ANU 07:14 → EMEROOARM 07:14 → SUATTDRO 10:30 → 3ANU 11:45
PROVIDERS: ADMIT Internal Medicine; ATTEND Internal Medicine

== ENCOUNTER 2020-12-23 08:10 | Observation (INO) ==
[2020-12-23 08:37] LABS: Basophils % 0.4 %; Eosinophils # 0.1 K/mcL (0.0-0.6); Eosinophils % 0.7 %; Hematocrit 43.1 % (37.5-50.1); Hemoglobin 14.3 g/dL (12.9-16.9); Immature Granulocytes % 0.2 % (0-4); Lymphocytes # 2.7 K/mcL (0.6-4.6); Lymphocytes % 32.4 %; Mean Corpuscular HGB Conc 33.2 g/dL (31.6-35.5); Mean Corpuscular Hemoglobin 31.1 pg (28.0-33.3); Mean Corpuscular Volume 93.7 fL (83.0-100.0); Mean Platelet Volume 10.6 fL (9.4-12.4); Monocytes # 0.7 K/mcL (0.0-1.3); Monocytes % 8.7 %; Neutrophils # 4.8 K/mcL (1.6-8.9); Platelet Count 231 K/mcL (140-400); Red Cell Distribution Width 13.9 % (11.5-14.5); Segmented Neutrophils % 57.6 %; White Blood Count 8.4 K/mcL (4.3-11.1)
[2020-12-23 08:38] LABS: Prothrombin Time 11.5 Seconds (9.4-12.1)
[2020-12-23] MEDS: Nitroglycerin 0.4 MG TAB.SUBL SL SCH ×3 (09:01→12:27)
[2020-12-23 09:07] LABS: BUN/Creatinine Ratio 14 (6-26); Blood Urea Nitrogen 14 mg/dL (8-23); Calcium 9.5 mg/dL (8.6-10.3); Carbon Dioxide 24 mEq/L (23-29); Chloride 99 mEq/L (98-107); Glucose 108 mg/dL (70-105); Osmolality,Calculated 285 (280-300); Potassium 3.8 mEq/L (3.5-5.1); Sodium 137 mEq/L (136-145); eGFR For African Americans > 60 (> 60); eGFR For Non-African Americans > 60 (> 60)
[2020-12-23] MEDS ORDERED: *HR* FentaNYL (PF) 100 MCG/2 ML VIAL IVP ONE (09:08)
[2020-12-23 09:09] LABS: Troponin I < 0.03 ng/mL (< 0.04)
[2020-12-23] MEDS ORDERED: Isovue-370 500 ML BOTTLE IVP ONE (09:31)
[2020-12-23] MEDS ORDERED: Naloxone 0.4 MG/ML INJ IVP PRN (10:46)
[2020-12-23] MEDS ORDERED: Acetaminophen 325 MG TABLET PO PRN (10:46)
[2020-12-23] MEDS ORDERED: Ondansetron 4 MG/2 ML VIAL IVP PRN (10:46)
[2020-12-23] MEDS ORDERED: lisinopriL 5 MG TABLET PO SCH (11:15)
[2020-12-23 11:27] LABS: Magnesium 1.5 mg/dL (1.6-2.6)
[2020-12-23] MEDS: Nitroglycerin 0.4 MG TAB.SUBL SL PRN ×2 (11:40→17:36)
[2020-12-23] MEDS ORDERED: carvediloL 6.25 MG TABLET PO SCH (17:00)
[2020-12-23] MEDS: carvediloL 6.25 MG TABLET PO SCH (17:37)
[2020-12-23] MEDS: Folic Acid 1 MG TABLET PO SCH (18:29)
[2020-12-23] MEDS: Thiamine (B-1) 100 MG TABLET PO SCH (18:29)
[2020-12-23] MEDS: Vitamin B Complex/Vit C/Vit E 1 EACH TABLET PO SCH (18:29)
[2020-12-24 04:35] LABS: Hematocrit 41.2 % (37.5-50.1); Hemoglobin 13.6 g/dL (12.9-16.9); Mean Corpuscular Hemoglobin 31.1 pg (28.0-33.3); Mean Corpuscular Volume 94.3 fL (83.0-100.0); Mean Platelet Volume 11.4 fL (9.4-12.4); Platelet Count 205 K/mcL (140-400); Red Blood Count 4.37 M/mcL (4.19-5.50); Red Cell Distribution Width 14.3 % (11.5-14.5); White Blood Count 10.5 K/mcL (4.3-11.1)
[2020-12-24 04:55] LABS: BUN/Creatinine Ratio 13 (6-26); Blood Urea Nitrogen 14 mg/dL (8-23); Calcium 9.4 mg/dL (8.6-10.3); Carbon Dioxide 27 mEq/L (23-29); Chloride 99 mEq/L (98-107); Glucose 104 mg/dL (70-105); Magnesium 2.6 mg/dL (1.6-2.6); Osmolality,Calculated 279 (280-300); Potassium 4.1 mEq/L (3.5-5.1); Sodium 134 mEq/L (136-145); eGFR For African Americans > 60 (> 60); eGFR For Non-African Americans > 60 (> 60)
[2020-12-24] MEDS ORDERED: Regadenoson 0.4 MG/5 ML SYRINGE IVP ONE (06:17)
[2020-12-24] MEDS ORDERED: lisinopriL 5 MG TABLET PO SCH (09:00)
[2020-12-24] MEDS: carvediloL 6.25 MG TABLET PO SCH ×2 (09:42→17:21)
[2020-12-24] MEDS: Folic Acid 1 MG TABLET PO SCH (09:42)
[2020-12-24] MEDS: Vitamin B Complex/Vit C/Vit E 1 EACH TABLET PO SCH (09:43)
[2020-12-24] MEDS: Thiamine (B-1) 100 MG TABLET PO SCH (09:43)
[2020-12-24] MEDS: Aspirin Enteric Coated 81 MG Tablet PO SCH (09:43)
[2020-12-24] MEDS: Isosorbide MONOnitrate (24 HR) 30 MG TAB.ER.24H PO SCH (17:21)
[2020-12-24] MEDS: *HR* Heparin 5,000 UNIT/ML VIAL SQ SCH (17:23)
[2020-12-25] MEDS: *HR* Heparin 5,000 UNIT/ML VIAL SQ SCH ×2 (05:31→17:46)
[2020-12-25 06:03] LABS: Hematocrit 40.5 % (37.5-50.1); Mean Corpuscular HGB Conc 32.1 g/dL (31.6-35.5); Mean Corpuscular Volume 96.4 fL (83.0-100.0); Platelet Count 220 K/mcL (140-400); Red Cell Distribution Width 14.1 % (11.5-14.5); White Blood Count 9.2 K/mcL (4.3-11.1)
[2020-12-25 06:22] LABS: BUN/Creatinine Ratio 21 (6-26); Blood Urea Nitrogen 29 mg/dL (8-23); Calcium 9.3 mg/dL (8.6-10.3); Carbon Dioxide 30 mEq/L (23-29); Chloride 97 mEq/L (98-107); Glucose 140 mg/dL (70-105); Osmolality,Calculated 284 (280-300); Potassium 4.3 mEq/L (3.5-5.1); Sodium 133 mEq/L (136-145); eGFR For African Americans > 60 (> 60); eGFR For Non-African Americans 50 (> 60)
[2020-12-25] MEDS ORDERED: 0.9 % Sodium Chloride 1,000 ML IVC SCH (07:30)
[2020-12-25] MEDS: Aspirin Enteric Coated 81 MG Tablet PO SCH (08:02)
[2020-12-25] MEDS: Folic Acid 1 MG TABLET PO SCH (08:03)
[2020-12-25] MEDS: carvediloL 6.25 MG TABLET PO SCH ×2 (08:03→17:46)
[2020-12-25] MEDS: Isosorbide MONOnitrate (24 HR) 30 MG TAB.ER.24H PO SCH (08:04)
[2020-12-25] MEDS: Vitamin B Complex/Vit C/Vit E 1 EACH TABLET PO SCH (08:04)
[2020-12-25] MEDS: Thiamine (B-1) 100 MG TABLET PO SCH (08:04)
[2020-12-25] MEDS ORDERED: lisinopriL 5 MG TABLET PO SCH (09:00)
[2020-12-25] MEDS ORDERED: Isosorbide MONOnitrate (24 HR) 30 MG TAB.ER.24H PO SCH (09:00)
[2020-12-25] MEDS: Ipratropium/Albuterol Neb 3 ML IH SCH ×3 (16:17→22:17)
[2020-12-26 02:23] LABS: Hemoglobin 11.9 g/dL (12.9-16.9); Mean Corpuscular HGB Conc 32.2 g/dL (31.6-35.5); Mean Corpuscular Hemoglobin 30.7 pg (28.0-33.3); Mean Corpuscular Volume 95.6 fL (83.0-100.0); Mean Platelet Volume 11.1 fL (9.4-12.4); Platelet Count 206 K/mcL (140-400); Red Blood Count 3.87 M/mcL (4.19-5.50); Red Cell Distribution Width 13.9 % (11.5-14.5)
[2020-12-26 02:36] LABS: BUN/Creatinine Ratio 22 (6-26); Blood Urea Nitrogen 23 mg/dL (8-23); Calcium 8.7 mg/dL (8.6-10.3); Carbon Dioxide 28 mEq/L (23-29); Chloride 102 mEq/L (98-107); Glucose 107 mg/dL (70-105); Osmolality,Calculated 286 (280-300); Potassium 4.3 mEq/L (3.5-5.1); Sodium 136 mEq/L (136-145); eGFR For African Americans > 60 (> 60); eGFR For Non-African Americans > 60 (> 60)
[2020-12-26] MEDS: Ipratropium/Albuterol Neb 3 ML IH SCH ×4 (03:24→22:42)
[2020-12-26] MEDS: *HR* Heparin 5,000 UNIT/ML VIAL SQ SCH ×2 (05:37→17:21)
[2020-12-26] MEDS: carvediloL 6.25 MG TABLET PO SCH ×2 (08:17→17:21)
[2020-12-26] MEDS: Thiamine (B-1) 100 MG TABLET PO SCH (08:17)
[2020-12-26] MEDS: Isosorbide MONOnitrate (24 HR) 30 MG TAB.ER.24H PO SCH (08:17)
[2020-12-26] MEDS: Folic Acid 1 MG TABLET PO SCH (08:17)
[2020-12-26] MEDS: Aspirin Enteric Coated 81 MG Tablet PO SCH (08:17)
[2020-12-26] MEDS: Vitamin B Complex/Vit C/Vit E 1 EACH TABLET PO SCH (08:17)
[2020-12-26] MEDS: predniSONE 20 MG TABLET PO SCH (12:27)
[2020-12-27] MEDS: Ipratropium/Albuterol Neb 3 ML IH SCH ×3 (04:16→15:27)
[2020-12-27] MEDS: *HR* Heparin 5,000 UNIT/ML VIAL SQ SCH (04:54)
[2020-12-27 07:39] LABS: Basophils % 0.1 %; Hematocrit 39.2 % (37.5-50.1); Hemoglobin 12.7 g/dL (12.9-16.9); Immature Granulocytes % 0.5 % (0-4); Lymphocytes % 9.5 %; Mean Corpuscular HGB Conc 32.4 g/dL (31.6-35.5); Mean Corpuscular Hemoglobin 30.5 pg (28.0-33.3); Mean Platelet Volume 11.2 fL (9.4-12.4); Monocytes % 11.5 %; Neutrophils # 8.5 K/mcL (1.6-8.9); Platelet Count 253 K/mcL (140-400); Red Blood Count 4.17 M/mcL (4.19-5.50); Red Cell Distribution Width 13.6 % (11.5-14.5); Segmented Neutrophils % 78.4 %
[2020-12-27 07:46] LABS: BUN/Creatinine Ratio 16 (6-26); Blood Urea Nitrogen 15 mg/dL (8-23); Calcium 9.6 mg/dL (8.6-10.3); Carbon Dioxide 26 mEq/L (23-29); Chloride 101 mEq/L (98-107); Glucose 106 mg/dL (70-105); Monocytes # 1.2 K/mcL (0.0-1.3); Osmolality,Calculated 281 (280-300); Potassium 3.9 mEq/L (3.5-5.1); Sodium 135 mEq/L (136-145); White Blood Count 10.8 K/mcL (4.3-11.1); eGFR For African Americans > 60 (> 60); eGFR For Non-African Americans > 60 (> 60)
[2020-12-27] MEDS ORDERED: carvediloL 6.25 MG TABLET PO SCH (08:00)
[2020-12-27] MEDS: Vitamin B Complex/Vit C/Vit E 1 EACH TABLET PO SCH (08:28)
[2020-12-27] MEDS: predniSONE 20 MG TABLET PO SCH (08:28)
[2020-12-27] MEDS: Thiamine (B-1) 100 MG TABLET PO SCH (08:28)
[2020-12-27] MEDS: Folic Acid 1 MG TABLET PO SCH (08:28)
[2020-12-27] MEDS: Aspirin Enteric Coated 81 MG Tablet PO SCH (08:29)
[2020-12-27] MEDS: Isosorbide MONOnitrate (24 HR) 30 MG TAB.ER.24H PO SCH (08:29)
[2020-12-27] MEDS ORDERED: lisinopriL 10 MG TABLET PO SCH (09:00)
[2020-12-27 10:14] VITALS: BP 154/91
== END 2020-12-27 16:09 | disposition home or self-care (01) ==
LOC: CDU 08:10 → EMEROOARM 08:10 → CDU 11:03 → 3BNU 18:50
PROVIDERS: ADMIT Internal Medicine; ATTEND Internal Medicine

== ENCOUNTER 2021-09-04 23:40 | Observation (INO) ==
[2021-09-04] MEDS ORDERED: Nitroglycerin 0.4 MG TAB.SUBL SL PRN (23:43)
[2021-09-04] MEDS ORDERED: Aspirin 81 MG TAB.CHEW PO ONE (23:43)
[2021-09-04] MEDS ORDERED: Ondansetron 4 MG/2 ML VIAL IVP ONE (23:44)
[2021-09-05 01:02] LABS: Basophils % 0.2 %; Hematocrit 37.4 % (37.5-50.1); Hemoglobin 12.5 g/dL (12.9-16.9); Immature Granulocytes % 0.2 % (0-4); Lymphocytes % 10.4 %; Mean Corpuscular HGB Conc 33.4 g/dL (31.6-35.5); Mean Corpuscular Hemoglobin 29.8 pg (28.0-33.3); Mean Corpuscular Volume 89.3 fL (83.0-100.0); Mean Platelet Volume 11.8 fL (9.4-12.4); Monocytes # 1.1 K/mcL (0.0-1.3); Monocytes % 11.7 %; Neutrophils # 7.4 K/mcL (1.6-8.9); Platelet Count 212 K/mcL (140-400); Red Blood Count 4.19 M/mcL (4.19-5.50); Segmented Neutrophils % 77.5 %; White Blood Count 9.5 K/mcL (4.3-11.1)
[2021-09-05 01:14] LABS: Prothrombin Time 11.1 Seconds (9.4-12.1)
[2021-09-05 01:17] LABS: Activated Partial Thrombo Time 28.6 Seconds (26.0-36.0); BUN/Creatinine Ratio 17 (6-26); Blood Urea Nitrogen 18 mg/dL (8-23); Calcium 9.7 mg/dL (8.6-10.3); Carbon Dioxide 24 mEq/L (23-29); Chloride 94 mEq/L (98-107); Glucose 106 mg/dL (70-105); Osmolality,Calculated 276 (280-300); Potassium 4.3 mEq/L (3.5-5.1); Sodium 132 mEq/L (136-145); Troponin I 0.03 ng/mL (< 0.04); eGFR For African Americans > 60 (> 60); eGFR For Non-African Americans > 60 (> 60)
[2021-09-05 01:30] LABS: Influenza A PCR Negative (Negative); Influenza B PCR Negative (Negative); Resp. Syncytial Virus PCR Negative (Negative)
[2021-09-05 01:32] LABS: SARS-CoV-2 by PCR (In House) Negative (Negative)
[2021-09-05] MEDS ORDERED: cefTRIAXone 1,000 MG in Water for inj. (sterile) 10 ML IVP ONE (01:34)
[2021-09-05] MEDS ORDERED: Azithromycin 500 MG in 0.9 % Sodium Chloride 250 ML IVPB ONE (01:34)
[2021-09-05] MEDS ORDERED: Acetaminophen 325 MG TABLET PO ONE (01:35)
[2021-09-05] MEDS ORDERED: Morphine Sulfate 2 MG/ML SYRINGE IVP STA (04:48)
[2021-09-05] MEDS ORDERED: Acetaminophen 325 MG TABLET PO PRN (06:00)
[2021-09-05] MEDS ORDERED: Ibuprofen 400 MG TABLET PO PRN (06:00)
[2021-09-05] MEDS ORDERED: MethylPREDNISolone 40 MG/ML VIAL IVP SCH (08:00)
[2021-09-05] MEDS ORDERED: predniSONE 20 MG TABLET PO SCH (09:00)
[2021-09-05] MEDS: carvediloL 6.25 MG TABLET PO SCH ×2 (11:20→21:12)
[2021-09-05] MEDS ORDERED: Naloxone 0.4 MG/ML INJ IVP PRN (14:15)
[2021-09-05] MEDS: Ipratropium 1 PUFF INHALER IH SCH ×3 (16:00→21:32)
[2021-09-05] MEDS: *HR* OxyCODONE/APAP 5/325 TABLET PO PRN (19:13)
[2021-09-05] MEDS: levoFLOXacin 750 MG/150 ML 750 MG/150 ML BAG IVPB SCH (19:15)
[2021-09-06] MEDS: *HR* OxyCODONE/APAP 5/325 TABLET PO PRN ×3 (01:12→21:26)
[2021-09-06] MEDS: Ipratropium 1 PUFF INHALER IH SCH ×4 (05:11→20:15)
[2021-09-06 06:27] LABS: Basophils % 0.1 %; Hematocrit 35.2 % (37.5-50.1); Hemoglobin 11.8 g/dL (12.9-16.9); Immature Granulocytes % 0.5 % (0-4); Lymphocytes % 6.8 %; Mean Corpuscular HGB Conc 33.5 g/dL (31.6-35.5); Mean Corpuscular Hemoglobin 30.2 pg (28.0-33.3); Mean Platelet Volume 11.2 fL (9.4-12.4); Monocytes # 1.1 K/mcL (0.0-1.3); Monocytes % 6.9 %; Platelet Count 196 K/mcL (140-400); Red Blood Count 3.91 M/mcL (4.19-5.50); Red Cell Distribution Width 13.8 % (11.5-14.5); Segmented Neutrophils % 85.7 %
[2021-09-06 06:29] LABS: White Blood Count 15.2 K/mcL (4.3-11.1)
[2021-09-06 06:46] LABS: Albumin 3.5 g/dL (3.5-5.7); Bilirubin,Direct 0.1 mg/dL (0.0-0.2); Bilirubin,Indirect 0.5 mg/dL (0.0-1.0); Bilirubin,Total 0.6 mg/dL (0.3-1.0); Globulin 3.4 g/dL (2.4-3.5); Magnesium 1.7 mg/dL (1.6-2.6); Potassium 4.4 mEq/L (3.5-5.1); Total Protein 6.9 g/dL (6.4-8.9)
[2021-09-06] MEDS: levoFLOXacin 750 MG/150 ML 750 MG/150 ML BAG IVPB SCH (08:02)
[2021-09-06] MEDS: Ringers Solution, Lactated 1,000 ML IVC SCH ×3 (08:02→17:40)
[2021-09-06] MEDS: *HR* Enoxaparin 40 MG/0.4 ML SYRINGE SQ SCH (08:02)
[2021-09-06] MEDS: Nicotine 14 MG PATCH.TD24 TD SCH (08:13)
[2021-09-06] MEDS: carvediloL 6.25 MG TABLET PO SCH (08:13)
[2021-09-06] MEDS: Aspirin 81 MG TAB.CHEW PO SCH (08:13)
[2021-09-06] MEDS ORDERED: Azithromycin 500 MG in 0.9 % Sodium Chloride 250 ML IVPB SCH (09:00)
[2021-09-06] MEDS ORDERED: cefTRIAXone 1,000 MG in Water for inj. (sterile) 10 ML IVP SCH (09:00)
[2021-09-06] MEDS: Latanoprost 2.5 ML BOTTLE BOTH EYES SCH (21:28)
[2021-09-07] MEDS: *HR* OxyCODONE/APAP 5/325 TABLET PO PRN ×3 (03:14→15:06)
[2021-09-07] MEDS: Ipratropium 1 PUFF INHALER IH SCH ×4 (04:11→20:17)
[2021-09-07 06:20] LABS: Basophils % 0.1 %; Hematocrit 36.5 % (37.5-50.1); Hemoglobin 12.6 g/dL (12.9-16.9); Immature Granulocytes % 0.3 % (0-4); Lymphocytes # 2.3 K/mcL (0.6-4.6); Lymphocytes % 22.3 %; Mean Corpuscular HGB Conc 34.5 g/dL (31.6-35.5); Mean Corpuscular Volume 89.9 fL (83.0-100.0); Mean Platelet Volume 11.3 fL (9.4-12.4); Monocytes # 1.1 K/mcL (0.0-1.3); Monocytes % 10.7 %; Neutrophils # 6.9 K/mcL (1.6-8.9); Platelet Count 239 K/mcL (140-400); Red Blood Count 4.06 M/mcL (4.19-5.50); Red Cell Distribution Width 13.5 % (11.5-14.5); Segmented Neutrophils % 66.6 %; White Blood Count 10.3 K/mcL (4.3-11.1)
[2021-09-07] MEDS: levoFLOXacin 750 MG/150 ML 750 MG/150 ML BAG IVPB SCH (08:38)
[2021-09-07] MEDS: Nicotine 14 MG PATCH.TD24 TD SCH (08:38)
[2021-09-07] MEDS: Aspirin 81 MG TAB.CHEW PO SCH (08:39)
[2021-09-07] MEDS: Isosorbide MONOnitrate (24 HR) 30 MG TAB.ER.24H PO SCH (08:39)
[2021-09-07] MEDS: *HR* Enoxaparin 40 MG/0.4 ML SYRINGE SQ SCH (08:39)
[2021-09-07] MEDS: carvediloL 6.25 MG TABLET PO SCH ×3 (08:40→21:23)
[2021-09-07 13:25] LABS: BUN/Creatinine Ratio 21 (6-26); Blood Urea Nitrogen 27 mg/dL (8-23); Calcium 9.7 mg/dL (8.6-10.3); Carbon Dioxide 29 mEq/L (23-29); Chloride 96 mEq/L (98-107); Glucose 113 mg/dL (70-105); Magnesium 1.8 mg/dL (1.6-2.6); Osmolality,Calculated 284 (280-300); Potassium 3.8 mEq/L (3.5-5.1); Sodium 134 mEq/L (136-145); eGFR For African Americans > 60 (> 60); eGFR For Non-African Americans 55 (> 60)
[2021-09-07] MEDS: *HR* OxyCODONE/APAP 7.5/325 TABLET PO PRN (21:22)
[2021-09-07] MEDS: Latanoprost 2.5 ML BOTTLE BOTH EYES SCH (21:23)
[2021-09-08] MEDS: Ipratropium 1 PUFF INHALER IH SCH ×3 (04:39→16:13)
[2021-09-08] MEDS: *HR* OxyCODONE/APAP 7.5/325 TABLET PO PRN (05:52)
[2021-09-08] MEDS: *HR* Enoxaparin 40 MG/0.4 ML SYRINGE SQ SCH (05:52)
[2021-09-08 06:25] VITALS: BP 136/81; PULSE 81; TEMP 97.6
[2021-09-08 07:57] LABS: Basophils % 0.2 %; Eosinophils % 0.1 %; Hematocrit 35.8 % (37.5-50.1); Hemoglobin 12.2 g/dL (12.9-16.9); Immature Granulocytes % 0.4 % (0-4); Lymphocytes # 1.9 K/mcL (0.6-4.6); Mean Corpuscular HGB Conc 34.1 g/dL (31.6-35.5); Mean Corpuscular Volume 91.1 fL (83.0-100.0); Mean Platelet Volume 11.4 fL (9.4-12.4); Monocytes # 1.1 K/mcL (0.0-1.3); Monocytes % 12.9 %; Neutrophils # 5.2 K/mcL (1.6-8.9); Platelet Count 203 K/mcL (140-400); Red Blood Count 3.93 M/mcL (4.19-5.50); Red Cell Distribution Width 13.6 % (11.5-14.5); Segmented Neutrophils % 63.4 %; White Blood Count 8.1 K/mcL (4.3-11.1)
[2021-09-08 08:22] LABS: BUN/Creatinine Ratio 19 (6-26); Blood Urea Nitrogen 24 mg/dL (8-23); Calcium 9.3 mg/dL (8.6-10.3); Carbon Dioxide 27 mEq/L (23-29); Chloride 97 mEq/L (98-107); Glucose 108 mg/dL (70-105); Magnesium 1.7 mg/dL (1.6-2.6); Osmolality,Calculated 281 (280-300); Potassium 3.8 mEq/L (3.5-5.1); Sodium 133 mEq/L (136-145); eGFR For African Americans > 60 (> 60); eGFR For Non-African Americans 55 (> 60)
[2021-09-08] MEDS ORDERED: levoFLOXacin 750 MG TABLET PO SCH (09:00)
[2021-09-08] MEDS: carvediloL 6.25 MG TABLET PO SCH (09:54)
[2021-09-08] MEDS: Aspirin 81 MG TAB.CHEW PO SCH (09:54)
[2021-09-08] MEDS: Nicotine 14 MG PATCH.TD24 TD SCH (09:54)
[2021-09-08] MEDS: Isosorbide MONOnitrate (24 HR) 30 MG TAB.ER.24H PO SCH (09:54)
[2021-09-08 13:33] VITALS: O2SAT 95
[2021-09-08] MEDS ORDERED: FLU Vac QV 21-22 (6Month+)/PF 0.5 ML SYRINGE IM ONE (13:46)
[2021-09-09] MEDS ORDERED: levoFLOXacin 750 MG TABLET PO SCH (09:00)
== END 2021-09-08 16:44 | disposition home health service (06) ==
LOC: 3ANU 23:40 → EMEROOARM 23:40 → SUATTDRO 09-05 05:31 → 3ANU 09-05 06:08
PROVIDERS: ADMIT Student in an Organized Health Care Education/Training Program; ATTEND Pharmacist